=== PATIENT | male | born 1990 | race Caucasian/White ===

== ENCOUNTER 2021-08-15 09:41 | Outpatient (REF) | payer BC, SELFPAY ==
[2021-08-15 19:24] LABS: Abs Immature Grans 0.03 10^3/uL (0.0-0.06); Absolute Basophil Count 0.11 10^3/uL (0.0-0.2); Absolute Eosinophil Count 0.52 10^3/uL (0.0-0.7); Absolute Lymphocyte Count 2.16 10^3/uL (1.2-3.4); Absolute Monocyte Count 0.83 10^3/uL (0.1-0.8); Absolute Neutrophil Count 5.73 10^3/uL (1.2-6.7); Basophils % 1.2; Eosinophils % 5.5; HCT 48.1 % (40.0-50.0); HGB 15.5 g/dL (13.5-17.5); Immature Grans % 0.3; MCH 28.8 pg (27.0-33.0); MCHC 32.2 % (32.0-36.0); MCV 89.2 fL (80-95); MPV 12.8 fL (8.0-11.0); Monocytes % 8.8; Neutrophils % 61.2; Nucleated RBC 0 %; Platelet Count 193 10^3/uL (130-400); RBC 5.39 10^6/uL (4.36-5.78); RDW 12.7 % (11.8-14.1); RDW-SD 41.7 fL; WBC 9.38 10^3/uL (4.4-10.8)
[2021-08-15 19:35] LABS: ALT 19 U/L (16-63); AST 22 U/L (15-37); Alkaline Phosphatase 104 U/L (46-116); Anion Gap 9.3 mmol/L (3-11); BUN 17 mg/dL (7-18); Bilirubin, Total 0.2 mg/dL (0.2-1.0); CO2 24.7 mmol/L (21.0-32.0); Calcium 8.9 mg/dL (8.5-10.1); Calculated LDL 146 mg/dL (<100); Chloride 106 mmol/L (98-107); Cholesterol 222 mg/dL (<200); Glucose 98 mg/dL (74-106); HDL Cholesterol 36 mg/dL (40-60); Potassium 4.4 mmol/L (3.5-5.1); Sodium 140 mmol/L (136-145); Total Protein 7.4 g/dL (6.4-8.2); Triglyceride 204 mg/dL (<150)
== END 2021-08-15 09:42 | disposition home or self-care (01) ==
LOC: NCHCN 09:41
PROVIDERS: Visit Provider Nurse Practitioner Family
DX: D69.6 Thrombocytopenia, unspecified (principal); Z68.38 Body mass index [BMI] 38.0-38.9, adult
CPT/HCPCS: 80053; 80061; 83036; 85025

== ENCOUNTER 2022-03-02 10:10 | Outpatient (REF) | payer BC, SELFPAY ==
[2022-03-02 20:23] LABS: Abs Immature Grans 0.03 10^3/uL (0.0-0.06); Absolute Basophil Count 0.06 10^3/uL (0.0-0.2); Absolute Eosinophil Count 0.69 10^3/uL (0.0-0.7); Absolute Lymphocyte Count 2.04 10^3/uL (1.2-3.4); Absolute Monocyte Count 0.86 10^3/uL (0.1-0.8); Absolute Neutrophil Count 4.46 10^3/uL (1.2-6.7); Basophils % 0.7; Eosinophils % 8.5; HCT 45.4 % (40.0-50.0); HGB 14.8 g/dL (13.5-17.5); Immature Grans % 0.4; Lymphocytes % 25.1; MCHC 32.6 % (32.0-36.0); MCV 89 fL (80-95); Monocytes % 10.6; Neutrophils % 54.7; RDW 12.7 % (11.8-14.1); WBC 8.14 10^3/uL (4.4-10.8)
[2022-03-02 20:50] LABS: Platelet Count 65 10^3/uL (130-400)
== END 2022-03-02 10:11 | disposition home or self-care (01) ==
LOC: NCHCN 10:10
PROVIDERS: PCP Nurse Practitioner Family; Visit Provider Nurse Practitioner Family
DX: D69.6 Thrombocytopenia, unspecified (principal)
CPT/HCPCS: 85025

== ENCOUNTER → 2022-03-20 02:07 | Outpatient (CLI) | payer BC, SELFPAY ==
--- NOTE | 2022-03-20 07:30 | DI.US_ITS ---
Exam(s) US NEEDLE LOCAL OTHER WO RAD EXAM: US NEEDLE LOCAL OTHER WO RAD CLINICAL HISTORY: Parotid mass,k11.8., ultrasound guided bx TECHNIQUE: Ultrasound performed using standard protocol. COMPARISON: No exams were available for comparison FINDINGS: Ultrasound guidance was provided for parotid biopsy performed by Dr. Clinton. Please see Dr. Mary Beth bee note. IMPRESSION: DATA REPOSITORY:
--- NOTE | 2022-03-20 12:30 | PAPNONF_PTH ---
PATIENT: Ryan Hines LOC: [facility] U#:[id number] AGE/SX: 35/M ROOM: RE03/20/[address]: Pearl Torres : 1990 BED: DIS: SPEC #: [id number] RECD: 03/20/22 17:10 STATUS: PANKAJ FRANKS #: [id number] JERAMY: 03/20/22 12:[address]: Pearl Torres DEPT: [facility] Cytology RECD BY: Lay Méndez ENTERED: 03/20/22 17:11 SP TYPE: AXEL SWARTZ DR: Jarad Davis Tissues: 1 - BODY FLUID CYTO-FINE NEEDLE [facility] Procedures: BODY FLUID CYTO-FINE NEEDLE ASPIRATE[facility] Comments: [id number] (PATH FNA CONSULT)
--- NOTE | 2022-03-20 14:33 | W.PROCNOTE ---
Procedure Note Date of procedure: 03/20/22 Procedure: Ultrasound-guided FNA, left parotid gland mass Procedure Diagnosis: Left parotid gland mass Procedure Indications: The patient has a indistinct left superficial lobe parotid gland mass by CT scan. Options were explained to patient regarding further management. Ultrasound of the area in question revealed a cystic-appearing structure with no significant associated blood flow but it appeared multiloculated. The arredondo appeared thin. I recommended attempted FNA with the understanding that given the appearance of the cystic hygroma, I was not convinced FNA would be forthcoming with significant cellularity to define the process. He wished to proceed. Consent was filled out and signed Procedure Description: The patient was positioned in supine position and prepped and draped in appropriate fashion. Using the ultrasound to localize the area in question, and trapping the area in question between my left index finger and thumb, the area over the lesion was injected with 1% lidocaine with 1/100,000 epinephrine. A 25-gauge needle was then passed repeatedly into the area in question, and the specimen handed to pathology. Specimen failed to reveal any obvious salivary gland tissue, or anything other than scattered lymphocytes numbers that pathology felt was consistent with the amount of heme to represent blood-borne lymphocytes. After interactive hemostasis, and after pathology had also created CytoLyt specimen, sterile dressing was applied and the patient was able to ambulate without difficulty. I was present throughout the entire procedure. I performed the procedure. Cranial nerve VII function remained intact. I will call the patient with results. He had no further questions. He will call if he does not hear from me within 7 days. He is comfortable with the plan.
== END ==
PROVIDERS: PCP Nurse Practitioner Family; Visit Provider Registered Nurse Maternal Newborn
DX: K11.8 Other diseases of salivary glands (principal)
CPT/HCPCS: 76942; 88104

== ENCOUNTER 2022-05-17 17:32 | Outpatient (REF) | payer BC, SELFPAY | END 2022-05-17 17:33 | disposition home or self-care (01) | LOC: NCHCN 17:32 | PROVIDERS: PCP Nurse Practitioner Family; Visit Provider Nurse Practitioner Family | DX: L72.9 Follicular cyst of the skin and subcutaneous tissue, unspecified (principal) | CPT/HCPCS: 87077; 87070; 87186; 87205 ==

== ENCOUNTER 2023-02-14 10:13 | Outpatient (REF) | payer BC, SELFPAY ==
[2023-02-14 20:47] LABS: ALT 27 U/L (16-63); AST 27 U/L (15-37); Albumin 4.1 g/dL (3.4-5.0); Alkaline Phosphatase 105 U/L (46-116); Anion Gap 8.9 mmol/L (3-11); BUN 16 mg/dL (7-18); Bilirubin, Total 0.4 mg/dL (0.2-1.0); CO2 26.1 mmol/L (21.0-32.0); Calculated LDL 156 mg/dL (<100); Chloride 106 mmol/L (98-107); Cholesterol 234 mg/dL (<200); Estimated GFR 103.19 (mL/min/1.73m2); Glucose 99 mg/dL (74-106); HDL Cholesterol 38 mg/dL (40-60); Potassium 4.4 mmol/L (3.5-5.1); Sodium 141 mmol/L (136-145); Total Protein 7.9 g/dL (6.4-8.2); Triglyceride 201 mg/dL (<150)
[2023-02-14 21:11] LABS: Hemoglobin A1C 5.1 % (<5.7)
== END 2023-02-14 10:14 | disposition home or self-care (01) ==
LOC: NCHCN 10:13
PROVIDERS: PCP Nurse Practitioner Family; Visit Provider Nurse Practitioner Family
DX: E78.5 Hyperlipidemia, unspecified (principal); Z68.37 Body mass index [BMI] 37.0-37.9, adult
CPT/HCPCS: 80053; 80061; 83036

== ENCOUNTER 2024-08-18 09:16 | Outpatient (REF) | payer OTHER, SELFPAY ==
[2024-08-18 19:19] LABS: Abs Immature Grans 0.02 10^3/uL (0.0-0.06); Absolute Basophil Count 0.06 10^3/uL (0.0-0.2); Absolute Eosinophil Count 0.37 10^3/uL (0.0-0.7); Absolute Lymphocyte Count 1.73 10^3/uL (1.2-3.4); Absolute Monocyte Count 1.22 10^3/uL (0.1-0.8); Absolute Neutrophil Count 4.07 10^3/uL (1.2-6.7); Basophils % 0.8 %; HGB 15.4 g/dL (13.5-17.5); Immature Grans % 0.3 %; Lymphocytes % 23.2 %; MCHC 32.8 % (32.0-36.0); MCV 89 fL (80-95); Monocytes % 16.3 %; Neutrophils % 54.4 %; RBC 5.31 10^6/uL (4.36-5.78); RDW 12.5 % (11.8-14.1); RDW-SD 41.1 fL; WBC 7.47 10^3/uL (4.4-10.8)
[2024-08-18 19:38] LABS: ALT 8 U/L (16-63); AST 19 U/L (15-37); Albumin 3.9 g/dL (3.4-5.0); Alkaline Phosphatase 106 U/L (46-116); Anion Gap 9.2 mmol/L (3-11); BUN 13 mg/dL (7-18); Bilirubin, Total 0.69 mg/dL (0.2-1.0); CO2 28.8 mmol/L (21.0-32.0); CREATININE 1.1 mg/dL (0.70-1.30); Calcium 9.1 mg/dL (8.5-10.1); Calculated LDL 135 mg/dL (<100); Chloride 106 mmol/L (98-107); Cholesterol 206 mg/dL (<200); Glucose 104 mg/dL (74-106); HDL Cholesterol 44 mg/dL (40-60); Potassium 3.9 mmol/L (3.5-5.1); Sodium 144 mmol/L (136-145); Total Protein 7.6 g/dL (6.4-8.2); Triglyceride 135 mg/dL (<150)
[2024-08-18 19:39] LABS: Platelet Count 38 10^3/uL (130-400)
== END 2024-08-18 09:17 | disposition home or self-care (01) ==
LOC: NCHCN 09:16
PROVIDERS: PCP Nurse Practitioner Family; Visit Provider Nurse Practitioner Family
DX: E78.5 Hyperlipidemia, unspecified (principal); D69.6 Thrombocytopenia, unspecified
CPT/HCPCS: 80053; 80061; 85025

== ENCOUNTER 2025-03-02 14:01 | Outpatient (REF) | payer OTHER, SELFPAY ==
[2025-03-02 20:33] LABS: ALT 20 U/L (16-63); AST 21 U/L (15-37); Albumin 4.3 g/dL (3.4-5.0); Alkaline Phosphatase 102 U/L (46-116); Anion Gap 10.1 mmol/L (3-11); BUN 19 mg/dL (7-18); Bilirubin, Total 0.5 mg/dL (0.2-1.0); CO2 25.9 mmol/L (21.0-32.0); Calcium 9.5 mg/dL (8.5-10.1); Chloride 106 mmol/L (98-107); Estimated GFR 101.92 (mL/min/1.73m2); Glucose 97 mg/dL (74-106); Potassium 4.5 mmol/L (3.5-5.1); Sodium 142 mmol/L (136-145); Total Protein 7.8 g/dL (6.4-8.2)
[2025-03-02 20:52] LABS: Calculated LDL 139 mg/dL (<100); Cholesterol 214 mg/dL (<200); HDL Cholesterol 35 mg/dL (>or=40); Triglyceride 202 mg/dL (<150)
== END 2025-03-02 14:02 | disposition home or self-care (01) ==
LOC: NCHCN 14:01
PROVIDERS: PCP Nurse Practitioner Family; Visit Provider Nurse Practitioner Family
DX: E78.5 Hyperlipidemia, unspecified (principal)
CPT/HCPCS: 80053; 80061

== ENCOUNTER 2025-06-18 17:36 | Outpatient (REF) | payer OTHER, SELFPAY ==
[2025-06-18 20:44] LABS: Abs Immature Grans 0.03 10^3/uL (0.0-0.06); HCT 47.2 % (40.0-50.0); HGB 15.5 g/dL (13.5-17.5); Immature Grans % 0.3 %; MCH 28.5 pg (27.0-33.0); MCHC 32.8 % (32.0-36.0); MCV 87 fL (80-95); Platelet Count 122 10^3/uL (130-400); RBC 5.44 10^6/uL (4.36-5.78); RDW 12.6 % (11.8-14.1); RDW-SD 40.0 fL; WBC 8.59 10^3/uL (4.4-10.8)
== END 2025-06-18 17:37 | disposition home or self-care (01) ==
LOC: LBN 17:36
PROVIDERS: PCP Nurse Practitioner Family; Visit Provider Internal Medicine
DX: D69.3 Immune thrombocytopenic purpura (principal)
CPT/HCPCS: 85025